=== PATIENT | male | born 1980 | race African-American/Black ===

== ENCOUNTER 2016-05-21 12:26 | Emergency (ER) | payer OTHER ==
[2016-05-21] MEDS ORDERED: CYCLOBENZAPRINE 10 MG TAB As Ordered ONE (13:56)
[2016-05-21] MEDS ORDERED: CitaloPRAM (CeleXA) 10 MG TABLET As Ordered ONE (13:56)
--- NOTE | 2016-05-21 15:36 | EDDOCDS ---
Physician Documentation [facility] Name: Arun Rob Age: 35 yrs Sex: Male : 1980 Arrival Date: 05/21/2016 Time: 12:26 Bed 30 Private MD: [facility] Disposition: 05/21/16 15:24 Discharged to Home/Self Care. Impression: Adjustment disorder with depressed mood. - Condition is Stable. - Discharge Instructions: Adjustment Disorder, Depression, Adult. - Medication Reconciliation, Local Pharmacy Hours form. - Follow up: [facility]; When: Call to arrange an appointment; Reason: Recheck today's complaints, Continuance of care. - Problem is an acute exacerbation. - Symptoms have improved. - Notes: Return to the ED for worsening symptoms, especially if feeling suicidal or other thoughts of harming self Historical: - Allergies: no known allergies; - Home Meds: 1. has 8 different meds from [facility] 2. Citalopram Oral once daily 3. Gabapentin Oral 3 times per day 4. Cyclobenzaprine Oral as needed - PMHx: neck and back issues; PTSD; Depression; - PSHx: none; - Social history: Smoking status: Patient uses tobacco products, heavy tobacco smoker. No barriers to communication noted, The patient speaks fluent Montserratian. - Family history: Not pertinent. - : The pt / caregiver states he / she is not on anticoagulants. Unable to Verify Home Med List with the patient / caregiver. - Exposure Risk Screening:: None identified. Vital Signs: 05/21 12:32 BP 156 / 97; Pulse 114; Resp 18 S; Temp 98.5(O); Pulse Ox 98% on R/A; Weight 90.72 kg / gr2 200 lbs (R); Height 5 ft. 10 in. (177.80 cm) (R); Pain 6/10; 15:32 BP 139 / 82; Pulse 92; Resp 18; Temp 97.6; Pulse Ox 97% ; pml 12:32 Body Mass Index 28.70 (90.72 kg, 177.80 cm) gr2 MDM: 13:51 Citalopram 20 mg PO once ordered. le 13:51 Cyclobenzaprine 10 mg PO once ordered. le Administered Medications: 13:58 Drug: Cyclobenzaprine 10 mg [cyclobenzaprine 10 mg tablet (1 tabs)] Route: PO; dy 13:59 Drug: Citalopram 20 mg [citalopram 10 mg tablet (2 tabs)] Route: PO; dy Signatures: Margret Bowser, Isabelle Jolly RN RN hs1 Anu Sky RN RN pml Miguel Bautista RN dy MTDD
--- NOTE | 2016-05-21 15:36 | EDDOCDS ---
Nurse's Notes [facility] Name: Arun Rob Age: 35 yrs Sex: Male : 1980 Arrival Date: 05/21/2016 Time: 12:26 Bed 30 Private MD: [facility] [place] Diagnosis: Adjustment disorder with depressed mood Presentation: 05/21 12:37 Presenting complaint: Patient states: needs to talk to someone needs to go home and hs1 talk to family , has no family around here and has no money ,denies s/i and h/i. Mental Health Triage Level: Level 1- Pt displays no suicidal or homicidal ideations and does not appear to be a danger to self or others. Adult Sepsis Screening: The patient does not have new or worsening altered mentation. Patient's respiratory rate is less than 22. Systolic blood pressure is greater than 100. Patient has a qSOFA score of 0- Negative Sepsis Screen. Mental Health Triage Level: Level 1- Pt displays no suicidal or homicidal ideations and does not appear to be a danger to self or others. Suicide/Homicide risk assessment- the patient denies having any suicidal and/or homicidal ideations and does not present with any other emotional, behavioral or mental health complaints. Status: Patient is not a distribution systems serviceperson or dependent. Transition of care: patient was not received from another setting of care. 12:37 Acuity: JAVIER Level 4 hs1 12:37 Method Of Arrival: Walkin/Carried/Asstd hs1 12:37 Red Flag criteria, patient assessed and is suitable to finish the RCE Process. mk4 Triage Assessment: 12:40 General: Appears in no apparent distress. Pain: Denies pain. HIV screening NA for this hs1 visit Offered previously. Historical: - Allergies: no known allergies; - Home Meds: 1. has 8 different meds from [facility] 2. Citalopram Oral once daily 3. Gabapentin Oral 3 times per day 4. Cyclobenzaprine Oral as needed - PMHx: neck and back issues; PTSD; Depression; - PSHx: none; - Social history: Smoking status: Patient uses tobacco products, heavy tobacco smoker. No barriers to communication noted, The patient speaks fluent Belarusian. - Family history: Not pertinent. - : The pt / caregiver states he / she is not on anticoagulants. Unable to Verify Home Med List with the patient / caregiver. - Exposure Risk Screening:: None identified. Screenin:18 Screening information is obtained from the patient. Fall risk: No risks identified. dy Assistance ADL's: requires no assistance with activities of daily living. Abuse/DV Screen: The patient / caregiver reports he/she is: not in a situation that causes fear, pain or injury. Nutritional screening: No deficits noted. Advance Directives: There is no active DNR order. home support is adequate. Assessment: 13:18 General: Appears in no apparent distress, comfortable, Behavior is appropriate for age, dy cooperative. Neurological: Level of Consciousness is awake, alert, obeys commands, Oriented to person, place, time. Respiratory: Airway is patent Respiratory effort is even, unlabored. Derm: Skin is pink, warm & dry. 14:15 General: Appears in no apparent distress, comfortable, Behavior is appropriate for age, dy cooperative. 14:15 Pain: Location: back and neck Pain currently is 6 out of 10 on a pain scale. dy Neurological: No deficits noted. Respiratory: Airway is patent Respiratory effort is even, unlabored. 15:13 General: Resting on stretcher - PSA in to see patient at this time. pml 15:32 General: Appears in no apparent distress, comfortable, Behavior is appropriate for age, pml cooperative. Neurological: Level of Consciousness is awake, alert, Oriented to person, place, time. Cardiovascular: Capillary refill < 3 seconds. Respiratory: Airway is patent Respiratory effort is even, unlabored. GI: Abdomen is non- distended. Derm: Skin is pink, warm & dry. Vital Signs: 12:32 BP 156 / 97; Pulse 114; Resp 18 S; Temp 98.5(O); Pulse Ox 98% on R/A; Weight 90.72 kg gr2 (R); Height 5 ft. 10 in. (177.80 cm) (R); Pain 6/10; 15:32 BP 139 / 82; Pulse 92; Resp 18; Temp 97.6; Pulse Ox 97% ; pml 12:32 Body Mass Index 28.70 (90.72 kg, 177.80 cm) gr2 Vitals: 12:32 Log In Time: May 21, 2016 at 12:32. gr2 12:32 RN notified that patient meets Red Flag criteria. gr2 ED Course: 12:28 Patient visited by Garett Beal. gr2 12:28 Patient moved to Waiting gr2 12:29 Olga Cohn is Private Physician. gr2 12:31 [facility] is Private Physician. gr2 12:33 Patient visited by Garett Beal. gr2 12:38 Patient visited by Garett Beal. gr2 12:38 Triage Initiated hs1 12:41 Miguel Bautista RN is Primary Nurse. hs1 12:41 Patient moved to 30 hs1 13:17 The patient / caregiver is instructed regarding the plan of care and ED course. Patient dy has correct armband on for positive identification. Bed in low position. Call light in reach. Side rails up X 1. 13:19 Patient visited by Miguel Bautista RN. dy 13:23 Margret Bowser FNP is PHCP. le 13:39 Patient visited by Margret Bowser FNP. le 13:39 Patient visited by Margret Bowser FNP. le 14:42 Patient visited by Miguel Bautista RN. dy 15:06 Anu Sky,JAE is Primary Nurse. pml 15:14 Patient visited by Anu Sky RN. pml 15:24 [facility] is Referral Physician. le 15:32 No IV's were initiated during this patient's visit. No procedures done that require pml assistance. Administered Medications: 13:58 Drug: Cyclobenzaprine 10 mg [cyclobenzaprine 10 mg tablet (1 tabs)] Route: PO; dy 13:59 Drug: Citalopram 20 mg [citalopram 10 mg tablet (2 tabs)] Route: PO; dy Order Results: There are currently no results for this order. Outcome: 15:24 Discharge ordered by Provider. le 15:32 Discharge Assessment: Patient awake, alert and oriented x 3. No cognitive and/or pml functional deficits noted. Patient verbalized understanding of disposition instructions. patient administered narcotics - no. The following High Risk Discharge criteria are identified: None. Discharged to home ambulatory. Condition: good Condition: stable. Discharge instructions given to patient, Instructed on discharge instructions, follow up and referral plans. Demonstrated understanding of instructions, Pt was receptive of discharge instructions/ teaching. No special radiology studies were completed. Property sent home with patient. 15:35 Patient left the ED. pml Signatures: Miguel Bautista RN RN dy Margret Bowser, DIRECTOR OF PRIMARY CARE DIRECTOR OF PRIMARY CARE Isabelle De Leon RN RN hs1 Anu Sky RN RN pml Garett Beal gr2 Laurita Perez RN RN mk4 Corrections: (The following items were deleted from the chart) 12:38 12:32 BP 156 / 97; Pulse 114bpm; Resp 18bpm; Spontaneous; Pulse Ox 98% RA; Temp 98.5F gr2 Oral; 90.72 kg Reported; Height 5 ft. 10 in. Reported; BMI: 28.7; Pain 5/10; gr2 12:43 12:37 Presenting complaint: Patient states: needs to talk to someone needs to go home mk4 and talk to family , has no family around here and has no money ,denies s/i and h/i hs1 MTDD
--- NOTE | 2016-05-23 16:37 | EDDOCDS ---
Nurse's Notes [facility] Name: Arun Rob Age: 35 yrs Sex: Male : 1980 Arrival Date: 05/21/2016 Time: 12:26 Bed 30 Private MD: [facility] [place] Diagnosis: Adjustment disorder with depressed mood Presentation: 05/21 12:37 Presenting complaint: Patient states: needs to talk to someone needs to go home and hs1 talk to family , has no family around here and has no money ,denies s/i and h/i. Mental Health Triage Level: Level 1- Pt displays no suicidal or homicidal ideations and does not appear to be a danger to self or others. Adult Sepsis Screening: The patient does not have new or worsening altered mentation. Patient's respiratory rate is less than 22. Systolic blood pressure is greater than 100. Patient has a qSOFA score of 0- Negative Sepsis Screen. Mental Health Triage Level: Level 1- Pt displays no suicidal or homicidal ideations and does not appear to be a danger to self or others. Suicide/Homicide risk assessment- the patient denies having any suicidal and/or homicidal ideations and does not present with any other emotional, behavioral or mental health complaints. Status: Patient is not a service learning coordinator or dependent. Transition of care: patient was not received from another setting of care. 12:37 Acuity: JAVIER Level 4 hs1 12:37 Method Of Arrival: Walkin/Carried/Asstd hs1 12:37 Red Flag criteria, patient assessed and is suitable to finish the RCE Process. mk4 Triage Assessment: 12:40 General: Appears in no apparent distress. Pain: Denies pain. HIV screening NA for this hs1 visit Offered previously. Historical: - Allergies: no known allergies; - Home Meds: 1. has 8 different meds from [facility] 2. Citalopram Oral once daily 3. Gabapentin Oral 3 times per day 4. Cyclobenzaprine Oral as needed - PMHx: neck and back issues; PTSD; Depression; - PSHx: none; - Social history: Smoking status: Patient uses tobacco products, heavy tobacco smoker. No barriers to communication noted, The patient speaks fluent Marshallese. - Family history: Not pertinent. - : The pt / caregiver states he / she is not on anticoagulants. Unable to Verify Home Med List with the patient / caregiver. - Exposure Risk Screening:: None identified. Screenin:18 Screening information is obtained from the patient. Fall risk: No risks identified. dy Assistance ADL's: requires no assistance with activities of daily living. Abuse/DV Screen: The patient / caregiver reports he/she is: not in a situation that causes fear, pain or injury. Nutritional screening: No deficits noted. Advance Directives: There is no active DNR order. home support is adequate. Assessment: 13:18 General: Appears in no apparent distress, comfortable, Behavior is appropriate for age, dy cooperative. Neurological: Level of Consciousness is awake, alert, obeys commands, Oriented to person, place, time. Respiratory: Airway is patent Respiratory effort is even, unlabored. Derm: Skin is pink, warm & dry. 14:15 General: Appears in no apparent distress, comfortable, Behavior is appropriate for age, dy cooperative. 14:15 Pain: Location: back and neck Pain currently is 6 out of 10 on a pain scale. dy Neurological: No deficits noted. Respiratory: Airway is patent Respiratory effort is even, unlabored. 15:13 General: Resting on stretcher - PSA in to see patient at this time. pml 15:32 General: Appears in no apparent distress, comfortable, Behavior is appropriate for age, pml cooperative. Neurological: Level of Consciousness is awake, alert, Oriented to person, place, time. Cardiovascular: Capillary refill < 3 seconds. Respiratory: Airway is patent Respiratory effort is even, unlabored. GI: Abdomen is non- distended. Derm: Skin is pink, warm & dry. Social Work Consult: 16:56 Social Work Note: Pt requesting to "talk to someone." Pt has been having marital ca problems which came to a head yesterday and pt spent night in a hotel. Pt is now out of money and also wishes to settle problems with his SO and plans to return to their home in [place]. Pt denies any SI or HI, states he is just having difficulties working things out at home because it is too noisy there. Pt is pleasant and cooperative. States he feels better after talking and is prepared to return home. Cab voucher given, along with one dose of his medications. Pt instructed to follow up with his providers at the [facility] in [place]. Vital Signs: 12:32 BP 156 / 97; Pulse 114; Resp 18 S; Temp 98.5(O); Pulse Ox 98% on R/A; Weight 90.72 kg gr2 (R); Height 5 ft. 10 in. (177.80 cm) (R); Pain 6/10; 15:32 BP 139 / 82; Pulse 92; Resp 18; Temp 97.6; Pulse Ox 97% ; pml 12:32 Body Mass Index 28.70 (90.72 kg, 177.80 cm) gr2 Vitals: 12:32 Log In Time: May 21, 2016 at 12:32. gr2 12:32 RN notified that patient meets Red Flag criteria. gr2 ED Course: 12:28 Patient visited by Garett Beal. gr2 12:28 Patient moved to Waiting gr2 12:29 Olga Cohn is Private Physician. gr2 12:31 [facility] is Private Physician. gr2 12:33 Patient visited by Garett Beal. gr2 12:38 Patient visited by Garett Beal. gr2 12:38 Triage Initiated hs1 12:41 Miguel Bautista RN is Primary Nurse. hs1 12:41 Patient moved to 30 hs1 13:17 The patient / caregiver is instructed regarding the plan of care and ED course. Patient dy has correct armband on for positive identification. Bed in low position. Call light in reach. Side rails up X 1. 13:19 Patient visited by Miguel Bautista RN. dy 13:23 Margret Bowser FNP is [facility]. le 13:39 Patient visited by Margret Bowser FNP. le 13:39 Patient visited by Margret Bowser FNP. le 14:42 Patient visited by Miguel Bautista RN. dy 15:06 Anu Sky,RN is Primary Nurse. pml 15:14 Patient visited by Anu Sky,JAE. pml 15:24 [facility] is Referral Physician. le 15:32 No IV's were initiated during this patient's visit. No procedures done that require pml assistance. 17:07 [facility] Payment Agreement was scanned into [employer] and attached to record. [email or web address] 05/22 10:50 T-Sheet-- Draft Copy was scanned into [employer] and attached to record. gb Administered Medications: 05/21 13:58 Drug: Cyclobenzaprine 10 mg [cyclobenzaprine 10 mg tablet (1 tabs)] Route: PO; dy 13:59 Drug: Citalopram 20 mg [citalopram 10 mg tablet (2 tabs)] Route: PO; dy Order Results: There are currently no results for this order. Outcome: 15:24 Discharge ordered by Provider. le 15:32 Discharge Assessment: Patient awake, alert and oriented x 3. No cognitive and/or pml functional deficits noted. Patient verbalized understanding of disposition instructions. patient administered narcotics - no. The following High Risk Discharge criteria are identified: None. Discharged to home ambulatory. Condition: good Condition: stable. Discharge instructions given to patient, Instructed on discharge instructions, follow up and referral plans. Demonstrated understanding of instructions, Pt was receptive of discharge instructions/ teaching. No special radiology studies were completed. Property sent home with patient. 15:35 Patient left the ED. pml Signatures: Ashwini Kelly, PSA PSA ca Eve Johnston, Reg Reg gb Miguel Bautista RN RN dy Westcott, Lisa, FINANCIAL AID COUNSELOR FINANCIAL AID COUNSELOR Isabelle De Leon RN RN hs1 Anu Sky RN RN pml Garett Beal gr2 Laurita Perez RN RN 4 Aminata Quevedo, Reg Reg ks16 Corrections: (The following items were deleted from the chart) 12:38 12:32 BP 156 / 97; Pulse 114bpm; Resp 18bpm; Spontaneous; Pulse Ox 98% RA; Temp 98.5F gr2 Oral; 90.72 kg Reported; Height 5 ft. 10 in. Reported; BMI: 28.7; Pain 5/10; gr2 12:43 12:37 Presenting complaint: Patient states: needs to talk to someone needs to go home mk4 and talk to family , has no family around here and has no money ,denies s/i and h/i hs1 Chart Complete MTDD
--- NOTE | 2016-05-23 16:37 | EDDOCDS ---
Physician Documentation [facility] Name: Arun Rob Age: 35 yrs Sex: Male : 1980 Arrival Date: 05/21/2016 Time: 12:26 Bed 30 Private MD: [facility] Disposition: 05/21/16 15:24 Discharged to Home/Self Care. Impression: Adjustment disorder with depressed mood. - Condition is Stable. - Discharge Instructions: Adjustment Disorder, Depression, Adult. - Medication Reconciliation, Local Pharmacy Hours form. - Follow up: [facility]; When: Call to arrange an appointment; Reason: Recheck today's complaints, Continuance of care. - Problem is an acute exacerbation. - Symptoms have improved. - Notes: Return to the ED for worsening symptoms, especially if feeling suicidal or other thoughts of harming self Historical: - Allergies: no known allergies; - Home Meds: 1. has 8 different meds from [facility] 2. Citalopram Oral once daily 3. Gabapentin Oral 3 times per day 4. Cyclobenzaprine Oral as needed - PMHx: neck and back issues; PTSD; Depression; - PSHx: none; - Social history: Smoking status: Patient uses tobacco products, heavy tobacco smoker. No barriers to communication noted, The patient speaks fluent Comoran. - Family history: Not pertinent. - : The pt / caregiver states he / she is not on anticoagulants. Unable to Verify Home Med List with the patient / caregiver. - Exposure Risk Screening:: None identified. Vital Signs: 05/21 12:32 BP 156 / 97; Pulse 114; Resp 18 S; Temp 98.5(O); Pulse Ox 98% on R/A; Weight 90.72 kg / gr2 200 lbs (R); Height 5 ft. 10 in. (177.80 cm) (R); Pain 6/10; 15:32 BP 139 / 82; Pulse 92; Resp 18; Temp 97.6; Pulse Ox 97% ; pml 12:32 Body Mass Index 28.70 (90.72 kg, 177.80 cm) gr2 MDM: 13:51 Citalopram 20 mg PO once ordered. le 13:51 Cyclobenzaprine 10 mg PO once ordered. le 17:07 Financial registration complete. [email or web address] 17:07 [facility] Payment Agreement was scanned into [employer] and attached to record. [email or web address] 05/22 10:50 T-Sheet-- Draft Copy was scanned into [employer] and attached to record. gb Administered Medications: 05/21 13:58 Drug: Cyclobenzaprine 10 mg [cyclobenzaprine 10 mg tablet (1 tabs)] Route: PO; dy 13:59 Drug: Citalopram 20 mg [citalopram 10 mg tablet (2 tabs)] Route: PO; dy Signatures: Eve Johnston, Reg Reg gb Margret Bowser, CNC MILL AND LATHE OPERATOR CNC MILL AND LATHE OPERATORIsabelle Lara RN RN hs1 Anu Sky RN RN Aminata Love, Reg Reg ks16 Miguel Bautista RN dy The chart was reviewed and I authenticate all verbal orders and agree with the evaluation and treatment provided.Attachments: 17:07 [facility] Payment Agreement [email or web address] 05/22 10:50 T-Sheet-- Draft Copy gb Chart Complete MTDD
--- NOTE | 2016-05-23 16:37 | EDDOCDS ---
Physician Documentation [facility] Name: Arun Rob Age: 35 yrs Sex: Male : 1980 Arrival Date: 05/21/2016 Time: 12:26 Bed 30 Private MD: [facility] Disposition: 05/21/16 15:24 Discharged to Home/Self Care. Impression: Adjustment disorder with depressed mood. - Condition is Stable. - Discharge Instructions: Adjustment Disorder, Depression, Adult. - Medication Reconciliation, Local Pharmacy Hours form. - Follow up: [facility]; When: Call to arrange an appointment; Reason: Recheck today's complaints, Continuance of care. - Problem is an acute exacerbation. - Symptoms have improved. - Notes: Return to the ED for worsening symptoms, especially if feeling suicidal or other thoughts of harming self Historical: - Allergies: no known allergies; - Home Meds: 1. has 8 different meds from [facility] 2. Citalopram Oral once daily 3. Gabapentin Oral 3 times per day 4. Cyclobenzaprine Oral as needed - PMHx: neck and back issues; PTSD; Depression; - PSHx: none; - Social history: Smoking status: Patient uses tobacco products, heavy tobacco smoker. No barriers to communication noted, The patient speaks fluent Comoran. - Family history: Not pertinent. - : The pt / caregiver states he / she is not on anticoagulants. Unable to Verify Home Med List with the patient / caregiver. - Exposure Risk Screening:: None identified. Vital Signs: 05/21 12:32 BP 156 / 97; Pulse 114; Resp 18 S; Temp 98.5(O); Pulse Ox 98% on R/A; Weight 90.72 kg / gr2 200 lbs (R); Height 5 ft. 10 in. (177.80 cm) (R); Pain 6/10; 15:32 BP 139 / 82; Pulse 92; Resp 18; Temp 97.6; Pulse Ox 97% ; pml 12:32 Body Mass Index 28.70 (90.72 kg, 177.80 cm) gr2 MDM: 13:51 Citalopram 20 mg PO once ordered. le 13:51 Cyclobenzaprine 10 mg PO once ordered. le 17:07 Financial registration complete. [email or web address] 17:07 [facility] Payment Agreement was scanned into [employer] and attached to record. [email or web address] 05/22 10:50 T-Sheet-- Draft Copy was scanned into [employer] and attached to record. gb Administered Medications: 05/21 13:58 Drug: Cyclobenzaprine 10 mg [cyclobenzaprine 10 mg tablet (1 tabs)] Route: PO; dy 13:59 Drug: Citalopram 20 mg [citalopram 10 mg tablet (2 tabs)] Route: PO; dy Signatures: Eve Johnston, Reg Reg gb Margret Bowser, BADGER DISTILLER OPERATOR BADGER DISTILLER OPERATORIsabelle Lara RN RN hs1 Anu Sky RN RN Aminata Love, Reg Reg ks16 Miguel Bautista RN dy The chart was reviewed and I authenticate all verbal orders and agree with the evaluation and treatment provided.Attachments: 17:07 [facility] Payment Agreement [email or web address] 05/22 10:50 T-Sheet-- Draft Copy gb Chart Complete MTDD
== END 2016-05-21 15:35 | disposition home or self-care (01) ==
LOC: M ED 12:26
DX: F32.9 Major depressive disorder, single episode, unspecified (principal); M54.9 Dorsalgia, unspecified; F43.10 Post-traumatic stress disorder, unspecified; F17.210 Nicotine dependence, cigarettes, uncomplicated; Z79.899 Other long term (current) drug therapy

== ENCOUNTER 2016-06-26 13:38 | Emergency (ER) | payer OTHER ==
[~2016-06-26] VITALS: Ht 177.8 cm; Wt 86.2 kg
[2016-06-26] MEDS ORDERED: CITA20TA4 PO (13:52)
[2016-06-26] MEDS ORDERED: TRAM50TA2 PO (13:53)
[2016-06-26] MEDS ORDERED: HYDR-3713 PO (13:54)
[2016-06-26] MEDS ORDERED: GABA-283 PO (13:58)
[2016-06-26 16:01] VITALS: BP 174/82
== END 2016-06-26 16:03 | disposition home or self-care (01) ==
LOC: M ED 14:39
DX: R45.1 Restlessness and agitation (principal); F33.9 Major depressive disorder, recurrent, unspecified; F43.10 Post-traumatic stress disorder, unspecified; G47.00 Insomnia, unspecified; M75.42 Impingement syndrome of left shoulder; M51.9 Unspecified thoracic, thoracolumbar and lumbosacral intervertebral disc disorder; F17.200 Nicotine dependence, unspecified, uncomplicated

== ENCOUNTER 2019-02-03 15:30 | Emergency (ER) | payer OTHER ==
[~2019-02-03] VITALS: Ht 182.9 cm; Wt 93.2 kg
[~2019-02-03 15:30] MED LIST: CITA20TA6 PO; GABA-845 PO; HYDR-3713 PO; TRAM50TA2 PO
[2019-02-03] MEDS ORDERED: NS 1,000 ML IV ONE ×2 (16:00→20:00)
[2019-02-03 16:45] LABS: BASO # 0.1 10^3/uL (0.0-0.2); BASO % 0.4 % (0.0-1.0); EOS # 0.2 10^3/uL (0.0-0.5); EOS % 1.2 % (0.0-3.0); HEMATOCRIT 40.7 % (42.0-52.0); HEMOGLOBIN 13.8 g/dl (13.5-17.5); LYMPH # 2.3 10^3/uL (1.5-5.0); MEAN CORPUSCULAR HEMOGLOBIN 30.8 pg (27.0-33.0); MEAN CORPUSCULAR HGB CONC 33.9 g/dl (32.0-36.5); MEAN CORPUSCULAR VOLUME 90.8 fl (80.0-96.0); MONO # 1.3 10^3/uL (0.0-0.8); MONO % 9.7 % (0.0-5.0); NEUTROPHILS # 9.8 10^3/uL (1.5-8.5); NEUTROPHILS % 71.3 % (36.0-66.0); PLATELET COUNT, AUTOMATED 168 10^3/uL (150-450); RED BLOOD COUNT 4.48 10^6/uL (4.30-6.10); WHITE BLOOD COUNT 13.7 10^3/uL (4.0-10.0)
[2019-02-03 16:54] LABS: INR 1.07; PROTHROMBIN TIME 13.6 SECONDS (11.8-14.0)
[2019-02-03 16:57] LABS: D-DIMER QUANT 748.85 ng/ml (<500)
--- NOTE | 2019-02-03 17:11 | REP ---
REASON: Dyspnea and cough. The technique utilized in obtaining the radiograph has magnified the cardiac silhouette and accentuated the interstitial markings. Possible subtle minimal opacities may be developing in the right lower lobe seen in a markedly limited fashion on the single AP portable examination of the chest. In addition, the prior examination for comparison is dated 01/20/2011 and the examinations are technically different. The right lung base appeared clear on that exam. IMPRESSION:Possible opacity developing in the right lower lobe as described above. Electronically Signed by Florencio Mixon DO 02/04/2019 11:47 A
[2019-02-03 17:28] LABS: ALBUMIN 3.7 GM/DL (3.2-5.2); ALT/SGPT 31 U/L (12-78); BILIRUBIN,DIRECT 0.2 MG/DL (0.0-0.2); BILIRUBIN,TOTAL 0.7 MG/DL (0.2-1.0); BLOOD UREA NITROGEN 9 MG/DL (7-18); CALCIUM LEVEL 8.6 MG/DL (8.5-10.1); CARBON DIOXIDE LEVEL 25 MEQ/L (21-32); CHLORIDE LEVEL 105 MEQ/L (98-107); CK-MB VALUE MASS 10.1 NG/ML (<3.6); CPK CREATINE PHOSPHOKINASE 1301 U/L (39-308); CREATININE FOR GFR 0.84 MG/DL (0.70-1.30); GLOMERULAR FILTRATION RATE > 60.0 (>60); GLUCOSE, FASTING 68 MG/DL (70-100); MB/CK RELATIVE INDEX 0.78 (< OR =4); POTASSIUM SERUM 3.7 MEQ/L (3.5-5.1); SODIUM LEVEL 138 MEQ/L (136-145); THYROXINE (T4) 7.5 UG/DL (4.5-12.0); TOTAL PROTEIN 6.6 GM/DL (6.4-8.2); TROPONIN I < 0.02 NG/ML (< 0.10)
[2019-02-03] MEDS ORDERED: ISOVUE-370 76% 100ML VIAL (Q9967) As Ordered ONE (17:56)
--- NOTE | 2019-02-03 19:04 | REPVR ---
PROCEDURE INFORMATION: Exam: CT Angiography Chest With Contrast Exam date and time: 02/03/2019 6:04 PM Clinical history: 38 years old, male; Shortness of breath TECHNIQUE: Imaging protocol: Computed tomographic angiography of the chest with intravenous contrast. 3D rendering: MIP reconstructed images were created and reviewed. Radiation optimization: All CT scans at this facility use at least one of these dose optimization techniques: automated exposure control; mA and/or kV adjustment per patient size (includes targeted exams where dose is matched to clinical indication); or iterative reconstruction. Contrast material: ISOVUE 370; Contrast volume: 100 ml; Contrast route: IV; COMPARISON: CR PORTABLE CHEST X-RAY 02/03/2019 4:10 PM FINDINGS: Pulmonary arteries: No filling defects in the pulmonary arteries to suggest pulmonary emboli. Aorta: Unremarkable. No aortic aneurysm. No aortic dissection. Lungs: Unremarkable. No consolidation. No masses. Pleural space: Unremarkable. No pneumothorax. No pleural effusion. Heart: Unremarkable. No cardiomegaly. No pericardial effusion. Lymph nodes: Unremarkable. No enlarged lymph nodes. Bones/joints: Unremarkable. No acute fracture. Soft tissues: Unremarkable. IMPRESSION: 1. No acute abnormality. 2. No filling defects in the pulmonary arteries to suggest pulmonary emboli. Electronically signed by: Miguel Raymundo On 02/03/2019 19:04:24 PM
--- NOTE | 2019-02-03 19:05 | REPVR ---
PROCEDURE INFORMATION: Exam: CT Abdomen And Pelvis With Contrast Exam date and time: 02/03/2019 6:04 PM Clinical history: 38 years old, male; Abdominal pain; Additional info: Llq pain TECHNIQUE: Imaging protocol: Computed tomography of the abdomen and pelvis with intravenous contrast. Radiation optimization: All CT scans at this facility use at least one of these dose optimization techniques: automated exposure control; mA and/or kV adjustment per patient size (includes targeted exams where dose is matched to clinical indication); or iterative reconstruction. Contrast material: ISOVUE 370; Contrast volume: 100 ml; Contrast route: IV; COMPARISON: No relevant prior studies available. FINDINGS: Liver: Enlarged low attenuating liver, evidence of hepatic steatosis. Gallbladder and bile ducts: Normal. No calcified stones. No ductal dilation. Pancreas: Normal. No ductal dilation. Spleen: Normal. No splenomegaly. Adrenals: Normal. No mass. Kidneys and ureters: Normal. No hydronephrosis. Stomach and bowel: Nonspecific excess gas in the small bowel. Appendix: No evidence of appendicitis. Intraperitoneal space: Unremarkable. No free air. No significant fluid collection. Vasculature: Unremarkable. No abdominal aortic aneurysm. Lymph nodes: Unremarkable. No enlarged lymph nodes. Bladder: Unremarkable as visualized. Reproductive: Unremarkable as visualized. Bones/joints: Unremarkable. No acute fracture. Soft tissues: Unremarkable. IMPRESSION: 1. Enlarged low attenuating liver, evidence of hepatic steatosis. 2. Nonspecific excess gas in the small bowel. Electronically signed by: Miguel Raymundo On 02/03/2019 19:05:42 PM
[2019-02-03] MEDS ORDERED: KEFL500C17 PO (19:54)
[2019-02-03] MEDS ORDERED: NYST1POW9 TOP (19:54)
[2019-02-03] MEDS ORDERED: KETO10TAB PO (19:54)
[2019-02-03] MEDS ORDERED: KETOROLAC 30 MG/ML VIAL (J1885) IV ONE (20:00)
[2019-02-03] MEDS ORDERED: CEPHALEXIN 500 MG CAP PO ONE (20:00)
[2019-02-03 20:10] LABS: CHLAMYDIA DNA AMPLIFICATION NEGATIVE (NEGATIVE); GC DNA AMPLIFICATION NEGATIVE (NEGATIVE)
[2019-02-03 21:00] VITALS: BP 130/59
[2019-02-03 21:33] LABS: HIV 1&2 SCREEN CENTAUR NEGATIVE (NEGATIVE)
== END 2019-02-03 21:19 | disposition home or self-care (01) ==
LOC: EDBD 15:30 → M ED 15:30
DX: M62.82 Rhabdomyolysis (principal); L03.90 Cellulitis, unspecified; Z79.899 Other long term (current) drug therapy; F17.210 Nicotine dependence, cigarettes, uncomplicated
CPT/HCPCS: 36415; 71045; 71275; 74177; 80048; 80076; 81001; 82550; 82553; 83605; 84436; 84443; 84484; 85025; 85379; 85610; 87389; 87491; 87591; 87661; 93041; 94760; 96361; 96374; 99285; J1885; Q9967